=== PATIENT | female | born 1995 | race Caucasian/White ===

== ENCOUNTER 2017-02-19 02:20 | Emergency (ER) | payer OTHER ==
[~2017-02-19] VITALS: Ht 165.1 cm; Wt 56.7 kg
[2017-02-19] MEDS ORDERED: CLINDAMYCIN HC300 MG PO (03:26)
[2017-02-19] MEDS ORDERED: VOLTAREN75 MG PO (03:26)
== END 2017-02-19 03:51 | disposition home or self-care (01) ==
LOC: SED 02:20
DX: L02.412 Cutaneous abscess of left axilla (principal); F17.200 Nicotine dependence, unspecified, uncomplicated; Z91.013 Allergy to seafood; Z79.899 Other long term (current) drug therapy
CPT/HCPCS: 10060; 87070; 87077; 87186; 87205; 99283